=== PATIENT | female | born 1985 | race Caucasian/White ===

== ENCOUNTER 2020-06-24 11:28 | Inpatient (IN) | payer OTHER, SELFPAY ==
[~2020-06-24] VITALS: Ht 162.6 cm; Wt 72.6 kg
[2020-06-24] MEDS ORDERED: LACTATED RINGERS 1,000 ML IV SCH (11:45)
[2020-06-24] MEDS ORDERED: CITRIC ACID/SODIUM CITRATE 30 ML UDC PO SCH (12:00)
[2020-06-24] MEDS ORDERED: PNV91TAB8 PO (12:22)
[2020-06-24] MEDS ORDERED: METF500T2 PO (12:22)
[2020-06-24] MEDS ORDERED: TRA200 PO (12:22)
[2020-06-24] MEDS ORDERED: SYN.05 PO (12:22)
[2020-06-24 12:28] VITALS: BP 136/87
[2020-06-24 12:46] LABS: BASOPHILS % (AUTO) 0.4 % (0.0-2.0); EOSINOPHILS # (AUTO) 0.1 K/uL (0-0.4); EOSINOPHILS % (AUTO) 0.6 % (0.0-4.0); HEMATOCRIT 26.6 % (36-48); HEMOGLOBIN 8.8 g/dL (12.0-16.0); LYMPHOCYTES % (AUTO) 19.9 % (20.5-51.1); MEAN CORPUSCULAR HEMOGLOBIN 26 pg (27-31); MEAN CORPUSCULAR HGB CONC 33 g/dL (33-37); MEAN CORPUSCULAR VOLUME 79.3 fL (80-94); MONOCYTES # (AUTO) 0.7 K/uL (0.8-1.0); MONOCYTES % (AUTO) 7.1 % (1.7-9.3); NEUTROPHILS # (AUTO) 7.3 K/uL (1.8-7.7); PLATELET COUNT (AUTO) 214 K/uL (140-450); RED BLOOD CELL COUNT(AUTO) 3.36 MIL/uL (4.20-5.40); RED CELL DISTRIBUTION WIDTH 13.9 % (11.6-13.7); WHITE BLOOD COUNT (AUTO) 10.2 K/uL (4.8-10.8)
[2020-06-24 13:02] LABS: ALBUMIN 2.7 g/dL (3.4-5.0); ANION GAP 16.9 (8-16); CARBON DIOXIDE 18.8 mmol/L (21-32); CREATININE 0.5 mg/dL (0.6-1.3); POTASSIUM 3.7 mmol/L (3.5-5.1); TOTAL BILIRUBIN 0.3 mg/dL (0.0-1.0)
[2020-06-24] MEDS ORDERED: MORPHINE PRES FREE 10 MG/10 ML AMP IV ONE (14:32)
[2020-06-24] MEDS ORDERED: fentaNYL citrate 0.05 MG/ML VIAL ONE (14:32)
[2020-06-24] MEDS ORDERED: DEXAMETHASONE 4 MG/ML VIAL ONE (14:36)
[2020-06-24] MEDS ORDERED: HYDROmorphone 1 MG/ML AMP ONE (14:36)
[2020-06-24] MEDS ORDERED: ONDANSETRON 4 MG/2 ML VIAL ONE (14:36)
[2020-06-24] MEDS ORDERED: METOCLOPRAMIDE 10 MG/2 ML INJ VIAL ONE (14:36)
[2020-06-24] MEDS ORDERED: oxyCODONE/APAP 5/325 MG 1 TAB TAB PO PRN ×2 (14:50)
[2020-06-24] MEDS ORDERED: KETOROLAC 30 MG/ML VIAL IVP PRN ×2 (14:50→15:10)
[2020-06-24] MEDS ORDERED: TEMAZEPAM 15 MG CAP PO PRN (14:50)
[2020-06-24] MEDS ORDERED: HYDROmorphone 1 MG/ML AMP IVP PRN (15:10)
[2020-06-24] MEDS ORDERED: NALOXONE 0.4 MG/ML VIAL IVP PRN (15:10)
[2020-06-24] MEDS ORDERED: ONDANSETRON 4 MG/2 ML VIAL IVP PRN (15:10)
[2020-06-24] MEDS ORDERED: IBUPROFEN 800 MG TAB PO PRN (15:20)
[2020-06-24] MEDS ORDERED: OXYTOCIN 20 UNITS/LR PREMIX 1,000 ML IV ONE (15:32)
[2020-06-24 15:57] LABS: APPEARANCE,URINE HAZY (CLEAR); BILIRUBIN,URINE NEGATIVE (NEGATIVE); BLOOD, URINE TRACE-I (NEGATIVE); COLOR,URINE YELLOW (YELLOW); LEUKOCYTE ESTERASE ,URINE NEGATIVE (NEGATIVE); NITRITE, URINE NEGATIVE (NEGATIVE); PH,URINE 5.5 (5.0-9.0); UGLUCOSE NEGATIVE (NEGATIVE)
[2020-06-24] MEDS: OXYTOCIN 20 UNITS in LACTATED RINGERS 1,000 ML IV SCH (17:53)
[2020-06-24] MEDS: DOCUSATE SOD/SENNA 50/8.6 MG 1 TAB PO SCH (21:00)
[2020-06-24] MEDS: LABETALOL 100 MG TAB PO SCH (21:03)
[2020-06-25] MEDS ORDERED: OXYTOCIN 20 UNITS/LR PREMIX 1,000 ML IV ONE (01:25)
[2020-06-25] MEDS: OXYTOCIN 20 UNITS in LACTATED RINGERS 1,000 ML IV SCH ×2 (01:30→09:33)
[2020-06-25] MEDS ORDERED: LEVOTHYROXINE 0.05 MG TAB ONE (05:20)
[2020-06-25 05:49] LABS: BASOPHILS % (AUTO) 0.2 % (0.0-2.0); EOSINOPHILS % (AUTO) 0.1 % (0.0-4.0); HEMATOCRIT 24.1 % (36-48); HEMOGLOBIN 7.8 g/dL (12.0-16.0); LYMPHOCYTES # (AUTO) 1.7 K/uL (2.5-16.5); LYMPHOCYTES % (AUTO) 15.7 % (20.5-51.1); MEAN CORPUSCULAR HEMOGLOBIN 26 pg (27-31); MEAN CORPUSCULAR HGB CONC 32 g/dL (33-37); MEAN CORPUSCULAR VOLUME 79.6 fL (80-94); MONOCYTES # (AUTO) 0.9 K/uL (0.8-1.0); MONOCYTES % (AUTO) 7.8 % (1.7-9.3); NEUTROPHILS # (AUTO) 8.4 K/uL (1.8-7.7); NEUTROPHILS % (AUTO) 76.2 % (42.2-75.2); PLATELET COUNT (AUTO) 187 K/uL (140-450); RED BLOOD CELL COUNT(AUTO) 3.03 MIL/uL (4.20-5.40); RED CELL DISTRIBUTION WIDTH 13.8 % (11.6-13.7)
[2020-06-25] MEDS: LEVOTHYROXINE 0.05 MG TAB PO SCH (06:34)
[2020-06-25] MEDS: metFORMIN 500 MG TAB PO SCH ×2 (08:14→17:56)
[2020-06-25] MEDS: LABETALOL 100 MG TAB PO SCH ×3 (08:58→21:19)
[2020-06-25] MEDS ORDERED: SODIUM PHOSPHATE 118 ML ENEM RC PRN (09:00)
[2020-06-25] MEDS: SIMETHICONE 80 MG TAB.CHEW PO PRN ×4 (09:06→18:00)
--- NOTE | 2020-06-25 09:21 | NUR ---
PATIENT HAS BEEN SCREENED AND CATEGORIZED MODERATE NUTRITION RISK. PATIENT WILL BE SEEN WITHIN 3-5 DAYS OF ADMISSION. 06/27/2020-06/29/[address]
[2020-06-25] MEDS: DOCUSATE SOD/SENNA 50/8.6 MG 1 TAB PO SCH (21:18)
[2020-06-25] MEDS ORDERED: CAMERA MC ONE (21:32)
[2020-06-26] MEDS: LEVOTHYROXINE 0.05 MG TAB PO SCH (06:32)
[2020-06-26] MEDS: metFORMIN 500 MG TAB PO SCH (08:53)
[2020-06-26] MEDS: LABETALOL 100 MG TAB PO SCH (08:54)
== END 2020-06-26 11:55 | disposition home or self-care (01) | DRG 787 ==
LOC: MLD 11:28 → MFCC 16:30
PROVIDERS: ADMIT Obstetrics & Gynecology; ATTEND Obstetrics & Gynecology
PROC: 10D00Z1 Extraction of Products of Conception, Low, Open Approach (ICD-10-PCS; principal; 2020-06-24 14:30)
DX: O40.3XX0 Polyhydramnios, third trimester, not applicable or unspecified (principal); O10.92 Unspecified pre-existing hypertension complicating childbirth; O34.211 Maternal care for low transverse scar from previous cesarean delivery; O99.284 Endocrine, nutritional and metabolic diseases complicating childbirth; E03.9 Hypothyroidism, unspecified; Z20.828 Contact with and (suspected) exposure to other viral communicable diseases; E66.3 Overweight; O99.214 Obesity complicating childbirth; O24.92 Unspecified diabetes mellitus in childbirth; Z3A.37 37 weeks gestation of pregnancy; Z37.0 Single live birth
CPT/HCPCS: 36415; 51702; 80053; 81003; 82948; 85025; 86592; 86886; 86900; 86901; 86920; J0690; J1100; J1170; J2270; J2405; J2590; J2765; J3010; J7060; J7120

== ENCOUNTER 2023-02-13 11:19 | Observation (INO) | payer BC, OTHER ==
[~2023-02-13] VITALS: Ht 162.6 cm; Wt 74.4 kg
[~2023-02-13 11:19] MED LIST: METF-1139 PO; PNV91TAB8 PO; SYN.05 PO; TRA200 PO
--- NOTE | 2023-02-13 12:36 | NUR ---
PATIENT HAS BEEN SCREENED AND CATEGORIZED LOW NUTRITION RISK. PATIENT WILL BE SEEN WITHIN 7 DAYS OF ADMISSION. 02/20/[address]
== END 2023-02-13 12:40 | disposition home or self-care (01) ==
LOC: MLD 11:19
PROVIDERS: ADMIT Obstetrics & Gynecology; ATTEND Obstetrics & Gynecology
DX: O26.893 Other specified pregnancy related conditions, third trimester (principal); R10.30 Lower abdominal pain, unspecified; Z3A.38 38 weeks gestation of pregnancy
CPT/HCPCS: 59025; 81000; G0378; G0379

== ENCOUNTER 2023-02-20 07:05 | Inpatient (IN) | payer BC ==
[~2023-02-20] VITALS: Ht 162.6 cm; Wt 74.4 kg
[~2023-02-20 07:05] MED LIST changes: -METF-1139 PO
[2023-02-20] MEDS ORDERED: CARBOPROST 250 MCG/ML AMP IM ONE ×2 (07:55→10:00)
[2023-02-20] MEDS ORDERED: CITRIC ACID/SODIUM CITRATE 30 ML UDC PO SCH (07:55)
[2023-02-20] MEDS ORDERED: CARBOPROST 250 MCG/ML AMP IM PRN (08:15)
[2023-02-20 08:56] LABS: BASOPHILS % (AUTO) 0.7 % (0.0-2.0); EOSINOPHILS # (AUTO) 0.1 K/uL (0-0.4); EOSINOPHILS % (AUTO) 1.3 % (0.0-4.0); HEMATOCRIT 25.5 % (36-48); HEMOGLOBIN 8.5 g/dL (12.0-16.0); LYMPHOCYTES # (AUTO) 1.3 K/uL (2.5-16.5); LYMPHOCYTES % (AUTO) 17.7 % (20.5-51.1); MEAN CORPUSCULAR HEMOGLOBIN 26 pg (27-31); MEAN CORPUSCULAR HGB CONC 33 g/dL (33-37); MONOCYTES # (AUTO) 0.6 K/uL (0.8-1.0); MONOCYTES % (AUTO) 8.6 % (1.7-9.3); NEUTROPHILS # (AUTO) 5.1 K/uL (1.8-7.7); NEUTROPHILS % (AUTO) 71.7 % (42.2-75.2); PLATELET COUNT (AUTO) 184 K/uL (140-450); RED BLOOD CELL COUNT(AUTO) 3.32 MIL/uL (4.20-5.40); RED CELL DISTRIBUTION WIDTH 14.6 % (11.6-13.7); WHITE BLOOD COUNT (AUTO) 7.1 K/uL (4.8-10.8)
--- NOTE | 2023-02-20 08:58 | NUR ---
PATIENT HAS BEEN SCREENED AND CATEGORIZED HIGH NUTRITION RISK. PATIENT WILL BE SEEN WITHIN 1-2 DAYS OF ADMISSION. 02/21/23-02/22/[address] Addendum: 02/20/23 at [address] PATIENT HAS BEEN SCREENED AND CATEGORIZED LOW NUTRITION RISK. PATIENT WILL BE SEEN WITHIN 7 DAYS OF ADMISSION. 02/27/[address]
[2023-02-20 09:03] LABS: APPEARANCE,URINE CLEAR (CLEAR); BILIRUBIN,URINE NEGATIVE (NEGATIVE); BLOOD, URINE NEGATIVE (NEGATIVE); COLOR,URINE YELLOW (YELLOW); LEUKOCYTE ESTERASE ,URINE 1+ (NEGATIVE); NITRITE, URINE NEGATIVE (NEGATIVE); PH,URINE 6.5 (5.0-9.0); UGLUCOSE NEGATIVE (NEGATIVE)
[2023-02-20 09:05] LABS: RBC,URINE 0-5 /HPF (0-5)
[2023-02-20] MEDS: LACTATED RINGERS 1,000 ML IV SCH ×2 (09:10→10:14)
[2023-02-20 09:19] LABS: ALBUMIN 2.5 g/dL (3.4-5.0); ANION GAP 13.4 (8-16); CREATININE 0.5 mg/dL (0.6-1.3); POTASSIUM 3.4 mmol/L (3.5-5.1); TOTAL BILIRUBIN 0.2 mg/dL (0.0-1.0)
[2023-02-20] MEDS ORDERED: ePHEDrine 50 MG/ML VIAL ONE (10:00)
[2023-02-20] MEDS ORDERED: ONDANSETRON 4 MG/2 ML VIAL ONE (10:00)
[2023-02-20] MEDS ORDERED: ceFAZolin 2,000 MG VIAL ONE (10:00)
[2023-02-20] MEDS ORDERED: KETOROLAC 30 MG/ML VIAL ONE (10:00)
[2023-02-20] MEDS ORDERED: OXYTOCIN 10 UNITS/ML VIAL ONE (10:00)
[2023-02-20 10:03] LABS: PROTHROMBIN TIME 9.5 secs (10.8-13.4)
[2023-02-20] MEDS ORDERED: MORPHINE PRES FREE 10 MG/10 ML AMP IV ONE (10:41)
[2023-02-20] MEDS ORDERED: TEMAZEPAM 15 MG CAP PO PRN ×2 (11:05)
[2023-02-20] MEDS ORDERED: MEASLES, MUMPS, AND RUBELLA 1 VIAL SQVAC PRN (11:05)
[2023-02-20] MEDS ORDERED: SIMETHICONE 80 MG TAB.CHEW PO PRN (11:05)
[2023-02-20] MEDS ORDERED: IBUPROFEN 800 MG TAB PO PRN (11:05)
[2023-02-20] MEDS ORDERED: KETOROLAC 30 MG/ML VIAL IVP PRN (11:05)
[2023-02-20] MEDS ORDERED: ONDANSETRON 4 MG/2 ML VIAL IVP PRN (11:45)
[2023-02-20] MEDS ORDERED: NALOXONE 0.4 MG/ML VIAL IVP PRN ×3 (11:45)
[2023-02-20] MEDS ORDERED: diphenhydrAMINE 50 MG/ML VIAL IVP PRN (11:45)
[2023-02-20] MEDS ORDERED: METOCLOPRAMIDE 10 MG/2 ML INJ VIAL IVP PRN (11:45)
[2023-02-20] MEDS ORDERED: NALBUPHINE 10 MG/ML AMP IVP PRN (11:45)
[2023-02-20] MEDS ORDERED: OXYTOCIN 20 UNITS/LR PREMIX 1,000 ML IV ONE ×2 (12:47→20:18)
[2023-02-20] MEDS: KETOROLAC 30 MG/ML VIAL IM/IVP SCH ×2 (17:12→23:12)
[2023-02-20] MEDS ORDERED: oxyCODONE/APAP 5/325 MG 1 TAB TAB PO PRN (19:00)
[2023-02-20] MEDS: DOCUSATE SOD/SENNA 50/8.6 MG 1 TAB PO SCH (21:00)
[2023-02-20] MEDS: OXYTOCIN 20 UNITS in LACTATED RINGERS 1,000 ML IV SCH (21:07)
[2023-02-21] MEDS ORDERED: OXYTOCIN 20 UNITS/LR PREMIX 1,000 ML IV ONE (04:18)
[2023-02-21] MEDS: OXYTOCIN 20 UNITS in LACTATED RINGERS 1,000 ML IV SCH (05:12)
[2023-02-21] MEDS: KETOROLAC 30 MG/ML VIAL IM/IVP SCH ×2 (05:12→10:36)
[2023-02-21 07:42] LABS: BASOPHILS % (AUTO) 0.2 % (0.0-2.0); EOSINOPHILS % (AUTO) 0.5 % (0.0-4.0); LYMPHOCYTES # (AUTO) 0.6 K/uL (2.5-16.5); LYMPHOCYTES % (AUTO) 8.1 % (20.5-51.1); MEAN CORPUSCULAR HEMOGLOBIN 26 pg (27-31); MEAN CORPUSCULAR HGB CONC 33 g/dL (33-37); MEAN CORPUSCULAR VOLUME 77.1 fL (80-94); MONOCYTES # (AUTO) 0.6 K/uL (0.8-1.0); MONOCYTES % (AUTO) 7.5 % (1.7-9.3); NEUTROPHILS # (AUTO) 6.5 K/uL (1.8-7.7); NEUTROPHILS % (AUTO) 83.7 % (42.2-75.2); PLATELET COUNT (AUTO) 144 K/uL (140-450); RED BLOOD CELL COUNT(AUTO) 2.48 MIL/uL (4.20-5.40); RED CELL DISTRIBUTION WIDTH 14.1 % (11.6-13.7); WHITE BLOOD COUNT (AUTO) 7.7 K/uL (4.8-10.8)
[2023-02-21 07:48] LABS: HEMATOCRIT 19.1 % (36-48); HEMOGLOBIN 6.4 g/dL (12.0-16.0)
[2023-02-21] MEDS: oxyCODONE/APAP 5/325 MG 1 TAB TAB PO PRN ×2 (12:59→19:45)
[2023-02-21] MEDS ORDERED: CAMERA MC ONE (19:30)
[2023-02-21] MEDS: DOCUSATE SOD/SENNA 50/8.6 MG 1 TAB PO SCH (21:00)
[2023-02-22] MEDS: oxyCODONE/APAP 5/325 MG 1 TAB TAB PO PRN ×2 (03:54→09:15)
== END 2023-02-22 14:15 | disposition home or self-care (01) | DRG 784 ==
LOC: MLD 07:05 → OBSVTOIN 08:09 → MFCC 13:30
PROVIDERS: ADMIT Obstetrics & Gynecology; ATTEND Obstetrics & Gynecology
PROC: 0UB70ZZ Excision of Bilateral Fallopian Tubes, Open Approach (ICD-10-PCS; 2023-02-20)
PROC: 10D00Z1 Extraction of Products of Conception, Low, Open Approach (ICD-10-PCS; principal; 2023-02-20 11:00)
DX: O34.211 Maternal care for low transverse scar from previous cesarean delivery (principal); O10.92 Unspecified pre-existing hypertension complicating childbirth; O99.284 Endocrine, nutritional and metabolic diseases complicating childbirth; E03.9 Hypothyroidism, unspecified; Z20.822 Contact with and (suspected) exposure to COVID-19; Z3A.38 38 weeks gestation of pregnancy; Z37.0 Single live birth
CPT/HCPCS: 36415; 80053; 81001; 85025; 85610; 85730; 86592; 86886; 86900; 86901; 87086; 88302; J0690; J1885; J2270; J2405; J2590; J3490; J7060; J7120